=== PATIENT | male | born 2000 | race Caucasian/White ===

== ENCOUNTER 2021-02-04 23:06 | Emergency (ER) | payer OTHER ==
[~2021-02-04 23:06] MED LIST: CIPRO HC OTIC S10 ML EARLF; CIPRODEX OTIC7.5 ML EARLF
[2021-02-04 23:50] LABS: HEMOGLOBIN 13.2 gm/dl (14.0-17.5); RED BLOOD COUNT 4.58 M/UL (4.20-5.50); WHITE BLOOD COUNT 9.6 K/UL (4.5-11.0)
[2021-02-05 00:14] LABS: BUN/CREATININE RATIO 12 (0-10)
[2021-02-05] MEDS ORDERED: KEPPRA1000 MG PO (01:26)
[2021-02-05] MEDS ORDERED: KEPPRA500 MG PO (01:31)
== END 2021-02-05 02:00 | disposition home or self-care (01) ==
LOC: ER1 23:06
PROVIDERS: Internal Medicine
DX: G40.909 Epilepsy, unspecified, not intractable, without status epilepticus (principal); F17.210 Nicotine dependence, cigarettes, uncomplicated
CPT/HCPCS: 70450; 71045; 80053; 82550; 82553; 83874; 84484; 85025; 93005; 96374; 99284; J1953

== ENCOUNTER 2021-02-07 12:38 | Emergency (ER) | payer OTHER ==
[~2021-02-07 12:38] MED LIST changes: +KEPPRA1000 MG PO; +KEPPRA500 MG PO
== END 2021-02-07 15:25 | disposition home or self-care (01) ==
LOC: ER1 12:38
DX: R94.02 Abnormal brain scan (principal); F17.200 Nicotine dependence, unspecified, uncomplicated
CPT/HCPCS: 70450; 93005; 99284